=== PATIENT | male | born 2000 | race Caucasian/White ===

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

== ENCOUNTER 2020-09-09 08:36 | Emergency (ER) | payer OTHER ==
[2020-09-09 08:46] VITALS: BP 153/89; PULSE 87; TEMP 98.7; BMI 58.6
[2020-09-09] MEDS ORDERED: LIDOCAINE HCL 1%, 10 MG/ML (20ML VIAL) ONE (09:05)
== END 2020-09-09 09:59 | disposition home or self-care (01) ==
LOC: JER 08:36
PROC: 0H98XZZ Drainage of Buttock Skin, External Approach (ICD-10-PCS; principal; 2020-09-09)
DX: L02.31 Cutaneous abscess of buttock (principal)
CPT/HCPCS: 87070; 87205; 99282-25

== ENCOUNTER 2020-11-02 19:46 | Emergency (ER) | payer OTHER ==
[2020-11-02 19:56] VITALS: BP 121/77; PULSE 95; TEMP 98.1; BMI 60.0
[2020-11-02] MEDS ORDERED: IBUPROFEN 600 MG TABLET (FP) PO ONE ×2 (20:54→20:59)
== END 2020-11-02 21:23 | disposition home or self-care (01) ==
LOC: JERFT 19:46
DX: M25.561 Pain in right knee (principal)
CPT/HCPCS: 99283-25

== ENCOUNTER 2021-02-02 06:50 | Emergency (ER) | payer OTHER ==
[2021-02-02 07:36] VITALS: BP 130/83; PULSE 78; TEMP 98.2; BMI 58.6
[2021-02-02] MEDS ORDERED: KETOROLAC TROMETHAMINE 60 MG/2 ML VIAL IM ONE (08:12)
[2021-02-02] MEDS ORDERED: KETOROLAC TROMETHAMINE 60 MG/2 ML VIAL ONE (08:41)
== END 2021-02-02 08:49 | disposition home or self-care (01) ==
LOC: JER 06:50
PROC: 3E0233Z Introduction of Anti-inflammatory into Muscle, Percutaneous Approach (ICD-10-PCS; principal; 2021-02-02)
DX: M79.672 Pain in left foot (principal)
CPT/HCPCS: 73610-TC-LT-FY; 73630-TC-LT; 96372; 99284-25

== ENCOUNTER 2022-01-06 09:56 | Emergency (ER) | payer OTHER ==
[2022-01-06 10:10] VITALS: BP 122/66; PULSE 83; RESP 18; TEMP 97.7; BMI 55.2
[2022-01-06] MEDS ORDERED: KETOROLAC TROMETHAMINE 30 MG/1 ML VIAL IM ONE (10:44)
[2022-01-06] MEDS ORDERED: KETOROLAC TROMETHAMINE 30 MG/1 ML VIAL ONE (10:47)
== END 2022-01-06 10:57 | disposition home or self-care (01) ==
LOC: JERFT 09:56
PROC: 3E0233Z Introduction of Anti-inflammatory into Muscle, Percutaneous Approach (ICD-10-PCS; principal; 2022-01-06)
DX: M25.562 Pain in left knee (principal)
CPT/HCPCS: 99284-25

== ENCOUNTER 2022-10-06 13:05 | Emergency (ER) | payer OTHER ==
[2022-10-06 13:16] VITALS: BP 104/56; PULSE 75; RESP 17; TEMP 98.5; BMI 54.3
[2022-10-06] MEDS ORDERED: ACETAMINOPHEN 500 MG TABLET (FP) PO ONE (13:31)
[2022-10-06] MEDS ORDERED: ACETAMINOPHEN 500 MG TABLET (FP) ONE (14:20)
== END 2022-10-06 14:53 | disposition home or self-care (01) ==
LOC: JER 13:05
DX: S29.011A Strain of muscle and tendon of front wall of thorax, initial encounter (principal); R07.9 Chest pain, unspecified
CPT/HCPCS: 71046-TC-FY; 93005; 93010; 99284-25

== ENCOUNTER 2023-07-07 12:46 | Emergency (ER) | payer OTHER ==
[2023-07-07 13:42] VITALS: RESP 20; BMI 54.3
[2023-07-07 14:40] VITALS: BP 119/55; PULSE 68; TEMP 98.2
== END 2023-07-07 14:40 | disposition home or self-care (01) ==
LOC: JER 12:46
DX: R55 Syncope and collapse (principal); R45.1 Restlessness and agitation; W18.30XA Fall on same level, unspecified, initial encounter
CPT/HCPCS: 93005; 93010; 99283-25

== ENCOUNTER 2024-01-08 18:53 | Emergency (ER) | payer OTHER ==
[2024-01-08 19:16] VITALS: BP 141/73; PULSE 78; RESP 18; TEMP 98.8; BMI 40.4
[2024-01-08] MEDS ORDERED: AMOX TR/POT CLAV 875MG/125MG TABLETS (FP) ONE (19:58)
[2024-01-08] MEDS ORDERED: ACETAMINOPHEN 500 MG TABLET (FP) ONE (19:59)
[2024-01-08] MEDS: AMOX TR/POT CLAV 875MG/125MG TABLETS (FP) PO ONE (20:01)
[2024-01-08] MEDS: ACETAMINOPHEN 500 MG TABLET (FP) PO ONE (20:01)
== END 2024-01-08 20:04 | disposition home or self-care (01) ==
LOC: JERFT 18:53
DX: H66.91 Otitis media, unspecified, right ear (principal); H92.01 Otalgia, right ear; J02.9 Acute pharyngitis, unspecified
CPT/HCPCS: 99283-25

== ENCOUNTER 2024-01-25 23:12 | Emergency (ER) | payer OTHER ==
[2024-01-25 23:19] VITALS: RESP 20; BMI 54.3
[2024-01-26] MEDS ORDERED: ACETAMINOPHEN INJECTION 100 ML ONE (01:13)
[2024-01-26] MEDS ORDERED: MAG HYDROX/AL HYDROX/SIMETH 30 ML UNIT-DOSE CUP ONE (01:13)
[2024-01-26] MEDS ORDERED: FAMOTIDINE 20 MG/50 ML IVPB 20 MG/50 ML MG IVPB ONE (01:13)
[2024-01-26 01:48] LABS: BASO % 0.3 % (0-2.0); HEMATOCRIT 43.7 % (35.4-49); HEMOGLOBIN 14.3 GM/dL (11.7-16.9); LYMPH % 30.4 % (8-40); MCH 27.4 pg (25.7-33.7); MCHC 32.7 g/dl (32.0-35.9); MEAN CELL VOLUME 83.8 fl (80-96); MEAN PLT VOLUME 7.8 fl (7.5-11.1); MONO % 7.2 % (3.8-10.2); NEUT % 60.1 % (42.8-82.8); PLATELET COUNT 382 10^3/uL (134-434); RBC 5.21 M/mm3 (4.00-5.60); RDW 14.6 % (11.9-15.9); WHITE BLOOD COUNT 10.2 K/mm3 (4.0-10.0)
[2024-01-26] MEDS: ACETAMINOPHEN 1000 MG/100 ML BAG IVPB ONE (01:55)
[2024-01-26] MEDS: MAG HYDROX/AL HYDROX/SIMETH 30 ML UNIT-DOSE CUP PO ONE (01:55)
[2024-01-26] MEDS: FAMOTIDINE 20 MG/50 ML IVPB 20 MG/50 ML MG IVPB ONE (01:56)
[2024-01-26 02:36] LABS: ALBUMIN 3.4 g/dl (3.4-5.0); ALK PHOS 60 U/L (45-117); ANION GAP 6 mmol/L (4-13); BILIRUBIN,TOTAL 0.5 mg/dL (0.2-1); BLOOD UREA NITROGEN 10.6 mg/dL (7-18); CALCIUM 9.1 mg/dL (8.5-10.1); CHLORIDE 108 mmol/L (98-107); CO2 21 mmol/L (21-32); CREATININE 0.8 mg/dL (0.55-1.3); GLUCOSE,RANDOM 102 mg/dL (74-106); POTASSIUM 6.7 mmol/L (3.5-5.1); SGOT/AST 79 U/L (15-37); SGPT/ALT 70 U/L (13-61); SODIUM 135 mmol/L (136-145); TOT PROT 8.5 g/dl (6.4-8.2)
[2024-01-26 03:34] LABS: POTASSIUM 5.9 mmol/L (3.5-5.1)
[2024-01-26 03:35] LABS: CALCIUM 8.9 mg/dL (8.5-10.1)
[2024-01-26 03:39] LABS: CREATININE 0.8 mg/dL (0.55-1.3)
[2024-01-26 04:17] VITALS: BP 119/61; PULSE 86; TEMP 98
[2024-01-26 04:29] LABS: POTASSIUM 4.3 mmol/L (3.5-5.1)
[2024-01-26 04:30] LABS: CALCIUM 9.1 mg/dL (8.5-10.1)
[2024-01-26 04:31] LABS: BLOOD UREA NITROGEN 11.4 mg/dL (7-18)
[2024-01-26 04:34] LABS: CREATININE 0.7 mg/dL (0.55-1.3)
== END 2024-01-26 04:54 | disposition home or self-care (01) ==
LOC: JER 23:12
PROC: 3E033GC Introduction of Other Therapeutic Substance into Peripheral Vein, Percutaneous Approach (ICD-10-PCS; principal; 2024-01-26)
PROC: 3E033NZ Introduction of Analgesics, Hypnotics, Sedatives into Peripheral Vein, Percutaneous Approach (ICD-10-PCS; 2024-01-26)
DX: R07.89 Other chest pain (principal); Z71.6 Tobacco abuse counseling
CPT/HCPCS: 36415; 71046-TC-FY; 80048; 80053; 84484; 85025; 93005; 93010; 99285-25; J0131